=== PATIENT | male | born 1975 | race Caucasian/White ===

== ENCOUNTER 2022-02-14 17:18 | Outpatient (CLI) | payer BC ==
[2022-02-14 17:50] LABS: BASOPHILS # (AUTO) 0.1 10^3/uL (0.0-0.1); BASOPHILS % (AUTO) 0.7 %; EOSINOPHILS # (AUTO) 0.2 10^3/uL (0.0-0.7); EOSINOPHILS % (AUTO) 2.3 %; HCT - HEMATOCRIT 41.1 % (42.0-52.0); HGB - HEMOGLOBIN 13.2 g/dL (14.0-18.0); LYMPHOCYTES # (AUTO) 2.4 10^3/uL (1.5-3.5); LYMPHOCYTES % (AUTO) 29.4 %; MEAN CORPUSCULAR HEMOGLOBIN 27.7 pg (27.0-31.0); MEAN CORPUSCULAR HGB CONC 32.1 g/dL (32.0-36.0); MEAN CORPUSCULAR VOLUME 86.2 fL (80.0-94.0); MEAN PLATELET VOLUME 10.8 fL (7.4-11.4); MONOCYTES % (AUTO) 11.9 %; NEUTROPHILS # (AUTO) 4.6 10^3/uL (1.5-6.6); NEUTROPHILS % (AUTO) 55.5 %; PLT - PLATELET COUNT 236 10^3/uL (130-450); RED BLOOD COUNT 4.77 10^6/uL (4.70-6.10); RED CELL DISTRIBUTION WIDTH 14.3 % (12.0-15.0); WHITE BLOOD COUNT 8.2 x10^3/uL (4.8-10.8)
[2022-02-14 18:01] LABS: FECAL OCCULT BLOOD (FIT) NEGATIVE (NEGATIVE)
[2022-02-14 18:27] LABS: ALBUMIN 4.5 g/dL (3.2-5.5); ALBUMIN/GLOBULIN RATIO 1.3 (1.0-2.2); ALKALINE PHOSPHATASE 47 IU/L (42-121); ALT ALANINE AMINOTRANSFERASE 30 IU/L (10-60); AST ASPARTATE AMINOTRANSFERASE 23 IU/L (10-42); BILIRUBIN,TOTAL 0.5 mg/dL (0.2-1.0); BUN - BLOOD UREA NITROGEN 18 mg/dL (6-20); CALCIUM 9.3 mg/dL (8.5-10.3); CARBON DIOXIDE - CO2 27 mmol/L (21-32); CHLORIDE 105 mmol/L (101-111); CHOL/HDL RATIO 5.7 (<5.0); CHOLESTEROL 244 mg/dL; GFR - MDRD 80 (>89); GLUCOSE 94 mg/dL (70-100); HDL CHOLESTEROL 43 mg/dL; LDL CHOLESTEROL,CALCULATED 180 mg/dL; LDL/HDL RATIO 4.2 (<3.6); POTASSIUM 4.5 mmol/L (3.5-5.0); SODIUM 140 mmol/L (135-145); TOTAL PROTEIN 7.9 g/dL (6.7-8.2); TRIGLYCERIDES 107 mg/dL; VLDL CHOLESTEROL 21 mg/dL
== END 2022-02-14 17:19 | disposition home or self-care (01) ==
LOC: LAB 17:18
PROVIDERS: ATTEND Nurse Practitioner
DX: Z00.00 Encounter for general adult medical examination without abnormal findings (principal); Z12.11 Encounter for screening for malignant neoplasm of colon; Z13.220 Encounter for screening for lipoid disorders
CPT/HCPCS: 36415; 80053; 80061; 82274; 83721; 85025

== ENCOUNTER 2022-09-15 16:09 | Outpatient (CLI) | payer BC ==
--- NOTE | 2022-09-15 19:39 | XRAY Report ---
PROCEDURE: Chest 2 View X-Ray INDICATIONS: CHEST WALL PAIN TECHNIQUE: 2 views of the chest were acquired. COMPARISON: None. FINDINGS: Surgical changes and devices: None. Lungs and pleura: An incomplete inspiratory result is noted, with low lung volumes and crowding of t he vascular markings. No focal infiltrates are seen. No large pneumothorax or large pleural effusion can be seen. Mediastinum: Mediastinal contours appear normal. Heart size is normal. Bones and chest wall: No focal rib abnormality is seen. No suspicious bony lesions. Overlying soft tissues appear unremarkable. IMPRESSION: Low lung volumes, without a cause of chest wall pain identified. No pneumothorax. If it would be helpful for clinical management decision making, please consider a dedicated chest CT with IV contrast for further evaluation. Reviewed by: Nico Esparza MD on 09/15/2022 6:37 PM JOSE Approved by: Nico Esparza MD on 09/15/2022 6:37 PM JOSE Station ID: [id number]
== END 2022-09-15 16:10 | disposition home or self-care (01) ==
LOC: DI 16:09
PROVIDERS: ATTEND Nurse Practitioner
DX: R07.89 Other chest pain (principal)

== ENCOUNTER 2022-10-16 08:53 | Outpatient (CLI) | payer BC ==
--- NOTE | 2022-10-16 12:12 | CT Report ---
PROCEDURE: CHEST WO INDICATIONS: CHEST WALL PAIN TECHNIQUE: Noncontrast 1mm axial images were acquired from the pulmonary apices to the posterior costophrenic an gles. Axial 5 mm soft tissue kernel reconstructions were performed as well as 8 mm axial MIP and cor onal and sagittal 5 mm reformations. For radiation dose reduction, the following was used: automate d exposure control, adjustment of mA and/or kV according to patient size. COMPARISON: Chest radiographs 09/15/2022 FINDINGS: Lymph nodes: No evidence of thoracic lymphadenopathy however evaluation for mediastinal and hilar kiana nopathy is limited in the absence of intravenous contrast. Vasculature: Aorta and main pulmonary artery diameters are within normal range. Heart: No pericardial effusion. Lung parenchyma and pleura: No consolidation, pleural effusion, or pneumothorax. A few scattered calc ified granulomata are present. Chest wall/musculoskeletal: Multilevel degenerative change of the visualized spine. Subacute or remot e fracture of the left anterior seventh rib. Visualized upper abdomen: Hypoattenuation of the imaged liver compatible with steatosis. 1-2 mm nonob structing stone left mid kidney. IMPRESSION: 1. Subacute or remote fracture of the left anterior seventh rib. 2. Hepatic steatosis. 3. Tiny nonobstructing left renal stone. Reviewed by: Luiz Hernandez MD on 10/16/2022 12:11 PM PDT Approved by: Luiz Hernandez MD on 10/16/2022 12:11 PM PDT Station ID: [id number]
== END 2022-10-16 08:54 | disposition home or self-care (01) ==
LOC: DI 08:53
PROVIDERS: ATTEND Nurse Practitioner
DX: K76.0 Fatty (change of) liver, not elsewhere classified (principal); N20.0 Calculus of kidney; R07.89 Other chest pain

== ENCOUNTER 2023-07-01 17:04 | Emergency (ER) | payer BC ==
[2023-07-01 17:21] LABS: BASOPHILS # (AUTO) 0.1 10^3/uL (0.0-0.1); BASOPHILS % (AUTO) 0.8 %; EOSINOPHILS # (AUTO) 0.1 10^3/uL (0.0-0.7); EOSINOPHILS % (AUTO) 1.7 %; HCT - HEMATOCRIT 40.8 % (42.0-52.0); HGB - HEMOGLOBIN 12.8 g/dL (14.0-18.0); LYMPHOCYTES # (AUTO) 1.9 10^3/uL (1.5-3.5); LYMPHOCYTES % (AUTO) 24.6 %; MEAN CORPUSCULAR HEMOGLOBIN 26.9 pg (27.0-31.0); MEAN CORPUSCULAR HGB CONC 31.4 g/dL (32.0-36.0); MEAN CORPUSCULAR VOLUME 85.7 fL (80.0-94.0); MEAN PLATELET VOLUME 10.6 fL (7.4-11.4); MONOCYTES # (AUTO) 0.8 10^3/uL (0.0-1.0); MONOCYTES % (AUTO) 10.2 %; NEUTROPHILS # (AUTO) 4.8 10^3/uL (1.5-6.6); NEUTROPHILS % (AUTO) 62.4 %; PLT - PLATELET COUNT 212 10^3/uL (130-450); RED BLOOD COUNT 4.76 10^6/uL (4.70-6.10); RED CELL DISTRIBUTION WIDTH 14.5 % (12.0-15.0); WHITE BLOOD COUNT 7.7 x10^3/uL (4.8-10.8)
[2023-07-01 17:35] LABS: ALBUMIN 4.2 g/dL (3.2-5.5); ALBUMIN/GLOBULIN RATIO 1.5 (1.0-2.2); BILIRUBIN,TOTAL 0.3 mg/dL (0.2-1.0); CALCIUM 9.2 mg/dL (8.5-10.3); POTASSIUM 3.9 mmol/L (3.5-4.5)
--- NOTE | 2023-07-01 22:44 | ED Physician Documentation ---
PD HPI ABD PAIN - Stated complaint Stated Complaint: RT SIDE ABD PX - Chief complaint Chief Complaint: Abd Pain - Additional information Additional information: HPI from patient. Patient complains of right flank pain, waxing and waning without exacerbating nor ameliorating factors. It has been associate with nausea but no vomiting. Denies fevers. Symptoms began this evening without specific inciting event. Denies injury. While the pain was initially right flank, it has gradually migrated towards the lower right flank and right lower quadrant, occasionally radiating to his right testicle. Denies history of similar symptoms. Denies dysuria, hematuria. Review of Systems Constitutional: denies: Fever Cardiac: reports: Reviewed and negative Respiratory: reports: Reviewed and negative GI: reports: Abdominal Pain, Nausea. denies: Vomiting, Bloody / black stool : denies: Dysuria, Frequency, Hematuria Skin: denies: Rash Musculoskeletal: denies: Back pain PD PAST MEDICAL HISTORY - Past Medical History Past Medical History: No Cardiovascular: None Respiratory: None Neuro: None Endocrine/Autoimmune: None GI: None : None HEENT: None Psych: None Musculoskeletal: None Derm: None - Past Surgical History Past Surgical History: Yes - Present Medications Home Medications: Ambulatory Orders Medication Instructions Recorded Confirmed Tamsulosin [Flomax] 0.4 mg PO DAILY #7 cap 07/01/23 oxyCODONE [Roxicodone] 5 mg PO Q4-6H PRN #10 tablet 07/01/23 - Allergies Allergies/Adverse Reactions: Allergies Allergy/AdvReac Type Severity Reaction Status Date / Time No Known Drug Allergies Allergy Verified 07/01/23 17:07 - Social History Does the pt smoke?: No Smoking Status: Never smoker Does the pt drink ETOH?: No Does the pt have substance abuse?: No - Immunizations Immunizations are current?: Yes PD ED PE NORMAL - Vitals Vital signs reviewed: Yes - General General: Alert and oriented X 3, No acute distress, Well developed/nourished - Cardiac Cardiac: RRR, No murmur - Respiratory Respiratory: No respiratory distress, Clear bilaterally - Abdomen Abdomen: Soft, Non tender, Non distended - Back Back: No CVA TTP - Derm Derm: No rash Results - Vitals Vitals: Vital Signs - 24 hr 07/01/23 17:07 Temperature 36.8 C Heart Rate 70 Respiratory 16 Rate Blood Pressure 147/89 H O2 Saturation 98 Oxygen O2 Source Room air - Labs Labs: Laboratory Tests 07/01/23 07/01/23 07/01/23 17:18 17:18 22:54 WBC 7.7 RBC 4.76 Hgb 12.8 L Hct 40.8 L MCV 85.7 MCH 26.9 L MCHC 31.4 L RDW 14.5 Plt Count 212 MPV 10.6 Neut # (Auto) 4.8 Lymph # (Auto) 1.9 [place] # (Auto) 0.8 Eos # (Auto) 0.1 Baso # (Auto) 0.1 Absolute Nucleated RBC 0.00 Nucleated RBC % 0.0 Sodium 140 Potassium 3.9 Chloride 106 Carbon Dioxide 29 Anion Gap 5.0 L BUN 21 H Creatinine 1.0 Estimated GFR (MDRD) 80 L Glucose 101 Calcium 9.2 Total Bilirubin 0.3 AST 21 ALT 28 Alkaline Phosphatase 56 Total Protein 7.0 Albumin 4.2 Globulin 2.8 Albumin/Globulin Ratio 1.5 Lipase 37 Urine Color YELLOW Urine Clarity CLEAR Urine pH 6.0 Ur Specific [place] 1.025 Urine Protein NEGATIVE Urine Glucose (UA) NEGATIVE Urine Ketones NEGATIVE Urine Occult Blood MODERATE H Urine Nitrite NEGATIVE Urine Bilirubin NEGATIVE Urine Urobilinogen 0.2 (NORMAL) Ur Leukocyte Esterase NEGATIVE Urine RBC 6-10 H Urine WBC 0-3 Ur Squamous Epith Cells NONE SEEN Urine Bacteria None Seen Ur Microscopic Review INDICATED Urine Culture Comments NOT INDICATED - Rads (name of study) CT A/P Relevant Findings:: Prelim report reviewed, EMP independent interpretation of test (I reviewed these images and my interpretation is 1 mm distal ureteral calculus (right ureter) with mild hydroureter), See rad report PD Medical Decision Making - ED course Complexity details: reviewed results, re-evaluated patient, considered differential, d/w patient ED course: No concerning or diagnostic findings on blood tests. Urinalysis shows small amount of blood (macro and micro) but no other abnormalities (specifically, no evidence on urinalysis to suggest UTI). CT of the abdomen/pelvis shows a 1 mm distal right UVJ calculus with mild right-sided hydroureter. Results discussed with patient. He remains in NAD. He declines pain medication, agreeable to prescription to be used if pain returns and does not respond to waxz-res-fnexeye medication such as ibuprofen. He is given Flomax p.o. and provided prescription for a 1-week course of Flomax. He is given a strainer and instructed to strain his urine, stop Flomax if he sees the stone in the strainer after 1 more dose subsequent to passing the stone. Departure - Departure Disposition: 01 Home, Self Care Clinical Impression: Renal colic on right side Condition: Good Instructions: ED Stone Renal W Colic Follow-Up: Meeta Casper, [employer]SULTING SERVICES PROJECT MANAGER [Primary Care Provider] - Prescriptions: Tamsulosin [Flomax] 0.4 mg PO DAILY #7 cap oxyCODONE [Roxicodone] 5 mg PO Q4-6H PRN #10 tablet PRN Reason: Pain >8 Comments: There were no concerning findings on the blood tests. Your urinalysis had a small amount of blood in it which is typical with kidney stones. The CT scan confirms that you have a right-sided kidney stone; this is what is causing the symptoms that you came in for. Fortunately, the kidney stone is particularly small (1 mm) and is at the very end of the ureter (the connection from the kidney to the bladder). The size and location of your kidney stone makes it very likely that will pass soon, possibly overnight. Once it has passed into your bladder, it will leave your body when you next urinate (you will not feel any more discomfort once it is in your bladder). You were given a dose of Flomax in the emergency department and I am prescribing a 1-week course of this medication; this dilates the ureter, making it easier to pass a kidney stone. You can urinate into the strainer provided (or urinate into a plastic container and then strain that urine through the strainer). The point of the strainer is so that you can see when you have passed the kidney stone. As we discussed, it is a very small stone; you will be looking for something that is about the size of a large grain of sand. Once you have passed the kidney stone, you can stop taking the Flomax after one more dose. Even though the kidney stone is very small, as you know, the pain from a kidney stone can sometimes be severe. Along these lines, I have electronically submitted a prescription for oxycodone (narcotic/opiate pain medication) to the [facility] pharmacy in [place]. Certainly, you can try ibuprofen for pain if the pain is not too severe. Otherwise, if ibuprofen does not work, or if the pain is too severe to wait for ibuprofen to work, you can take the oxycodone.
[2023-07-01 23:02] LABS: BILIRUBIN,URINE NEGATIVE (NEGATIVE); GLUCOSE, URINE (UA) NEGATIVE (NEGATIVE); KETONES,URINE (UA) NEGATIVE (NEGATIVE); LEUKOCYTE ESTERASE, URINE NEGATIVE (NEGATIVE); NITRITE,URINE NEGATIVE (NEGATIVE); OCCULT BLOOD,URINE MODERATE (NEGATIVE); PROTEIN,URINE NEGATIVE (NEGATIVE); UROBILINOGEN,URINE 0.2 (NORMAL) E.U./dL (NORMAL)
[2023-07-01 23:18] LABS: CLARITY,URINE CLEAR (CLEAR)
[2023-07-01 23:19] LABS: BACTERIA,URINE None Seen /HPF (None Seen); SQUAMOUS EPITHELIAL CELL,UR NONE SEEN (<= Few); WBC,URINE 0-3 /HPF (0-3)
--- NOTE | 2023-07-01 23:30 | CT Report ---
PROCEDURE: Abdomen/Pelvis WO INDICATIONS: right flank pain TECHNIQUE: A CT scan of the abdomen and pelvis was performed without the use of intravenous contrast. Images we re recorded and evaluated at appropriate window settings. Reformats: coronal and sagittal. For radiat ion dose reduction, the following was used: automated exposure control, adjustment of mA and/or kV ac cording to patient size. COMPARISON: None. FINDINGS: Image quality: Excellent. Lung bases and heart: Pleural-parenchymal band in the left lower lobe. Liver: No contour-deforming mass. Gallbladder and biliary tree: Spleen: No splenomegaly. Pancreas: No pancreatic ductal dilation. Adrenals: No adrenal nodule. Kidneys and ureters: Obstructing 1 mm stone in the distal right ureter, resulting in moderate upstrea m hydronephrosis and hydroureter. Minimal perinephric fat stranding. Bowel and peritoneum: No bowel distension. No pathologic free fluid. Normal appendix. No significant diverticular disease. Lymph nodes: No central or retroperitoneal adenopathy. Vessels: No infrarenal aortic aneurysm. PELVIS Reproductive organs: Unremarkable. Bladder: No wall thickness, accounting for underdistention. Pelvic lymph nodes: No pelvic adenopathy by size criteria. Bones: No aggressive osseous abnormality. Other: Trace fat within the inguinal canals. IMPRESSION: Obstructing 1 mm stone in the distal right ureter, resulting in moderate upstream hydronephrosis and hydroureter. Reviewed by: Juan Manuel Cortes MD on 07/01/2023 11:28 PM PST Approved by: Juan Manuel Cortes MD on 07/01/2023 11:28 PM PST Station ID: [id number]
[2023-07-01] MEDS ORDERED: TAMSULOSIN 0.4 MG CAPSULE PO STA (23:36)
[2023-07-02 00:57] VITALS: BP 138/91; O2SAT 97
== END 2023-07-02 | disposition home or self-care (01) ==
LOC: ED 17:04
DX: N13.2 Hydronephrosis with renal and ureteral calculous obstruction (principal)
CPT/HCPCS: 36415; 74176; 80053; 81001; 83690; 85025; 99284; A9270; 81003; 87086

== ENCOUNTER 2023-07-09 08:00 | Outpatient (CLI) | payer BC | END 2023-07-09 23:59 | disposition home or self-care (01) | LOC: LAB.R 08:00 | PROVIDERS: ATTEND Nurse Practitioner | DX: N20.0 Calculus of kidney (principal) | CPT/HCPCS: 82365 ==